=== PATIENT | male | born 1970 | race Caucasian/White ===

== ENCOUNTER 2017-02-03 01:23 | Inpatient (IN) ==
[2017-02-03 01:53] LABS: Bilirubin,Urine Negative (Negative); Blood,Urine Negative (Negative); Clarity,Urine Cloudy (Clear); Color,Urine Yellow (Yellow); Glucose,Urine (UA) Normal (Normal); Ketones,Urine Negative (Negative); Leukocyte Esterase,Urine Small (Negative); Nitrite,Urine Negative (Negative); PH,Urine 5.5 pH Units (5.0-8.0); Protein,Urine Negative (Neg-Trace); Specific Gravity,Urine 1.022 (1.010-1.025); Urobilinogen,Urine Normal (Normal)
[2017-02-03 01:54] LABS: Bacteria,Urine Few per hpf (None-Few); Hyaline Casts,Urine Few per lpf (None-Few); RBC,Urine 0-3 per hpf (0-3); Squamous Epithelial Cell,Urine Many per lpf (None-Few); WBC,Urine 15-30 per hpf (0-3)
[2017-02-03 02:00] LABS: Amphetamine Screen,Urine Negative ng/mL (Cutoff=1000); Barbiturate Screen,Urine Negative ng/mL (Cutoff=200); Benzodiazepines Screen,Urine Positive ng/mL (Cutoff=200); Cannabinoid Screen,Urine Positive ng/mL (Cutoff = 50); Cocaine Screen,Urine Positive ng/mL (Cutoff= 300); Opiate Screen,Urine Positive ng/mL (Cutoff=300); Phencyclidine Screen,Urine Negative ng/mL (Cutoff=25)
[2017-02-03 02:00] LABS: Basophils % 0.4 %; Eosinophils # 0.5 K/mcL (0.0-0.6); Eosinophils % 5.1 %; Hemoglobin 13.2 g/dL (12.9-16.9); Immature Granulocytes % 0.2 % (0-4); Lymphocytes # 2.3 K/mcL (0.6-4.6); Lymphocytes % 25.2 %; Mean Corpuscular Hemoglobin 28.6 pg (28.0-33.3); Mean Corpuscular Volume 86.6 fL (83.0-100.0); Mean Platelet Volume 10.9 fL (9.4-12.4); Monocytes # 0.5 K/mcL (0.0-1.3); Monocytes % 5.7 %; Neutrophils # 5.7 K/mcL (1.6-8.9); Platelet Count 237 K/mcL (140-400); Red Blood Count 4.62 M/mcL (4.19-5.50); Segmented Neutrophils % 63.4 %
[2017-02-03 02:13] LABS: BUN/Creatinine Ratio 19 (6-26); Blood Urea Nitrogen 15 mg/dL (8-26); Calcium 9.1 mg/dL (8.6-10.8); Carbon Dioxide 25 mEq/L (19-29); Chloride 103 mEq/L (98-109); Glucose 116 mg/dL (70-99); Osmolality,Calculated 286 (280-300); Potassium 4.2 mEq/L (3.5-4.5); Sodium 137 mEq/L (136-145); eGFR For African Americans > 60 (> 60); eGFR For Non-African Americans > 60 (> 60)
[2017-02-03 02:14] LABS: Acetaminophen < 1.0 mcg/mL (10-30); Ethanol < 10 mg/dL (0-10); Salicylate < 5.0 mg/dL (15-30)
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
[2017-02-03] MEDS ORDERED: ALPRAZolam 0.5 MG TABLET PO ONE (05:17)
[2017-02-03] MEDS ORDERED: traZODone 50 MG TABLET PO PRN (05:21)
[2017-02-03] MEDS ORDERED: *HR* LORazepam 1 MG TABLET PO PRN (05:21)
[2017-02-03] MEDS ORDERED: Haloperidol Lactate 5 MG/ML VIAL IM PRN (05:21)
[2017-02-03] MEDS ORDERED: Ibuprofen 400 MG TABLET PO PRN (05:21)
[2017-02-03] MEDS ORDERED: MOM Conc 10 ML UD.LIQ PO PRN (05:21)
[2017-02-03] MEDS ORDERED: Mag Hydrox/Al Hydrox/Simeth 30 ML UDC PO PRN (05:21)
[2017-02-03] MEDS ORDERED: *HR* LORazepam 2 MG/ML VIAL IM PRN (05:21)
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
[2017-02-03] MEDS: Gabapentin 400 MG CAPSULE PO SCH ×3 (12:30→21:21)
[2017-02-03] MEDS ORDERED: Gabapentin 400 MG CAPSULE PO SCH (13:00)
[2017-02-03] MEDS: hydrOXYzine pamoate 25 MG CAPSULE PO PRN (15:06)
[2017-02-03] MEDS: clonazePAM 1 MG TABLET PO SCH (21:21)
[2017-02-04] MEDS: Gabapentin 400 MG CAPSULE PO SCH ×4 (09:45→20:49)
[2017-02-04] MEDS: clonazePAM 1 MG TABLET PO SCH ×2 (09:45→20:49)
--- NOTE | 2017-02-04 09:51 | Psychiatry Progress Note ---
Date of Encounter: 02/04/17 Time of Encounter: 09:44 Subjective Interval history: States he is feeling much better. Smiling and joking today. Telling staff how much he loves them. Saw a peer act up in order to leave the hospital yesterday and he started to do the same but was easily redirected. Now he is using flattery with everyone. [place]hler II more apparent but clearly has multiple stressors as well. Client seems to like medications. Feels they are helping him and plans to stay on them. Staff were able to verify that he is prescribed high dose Xanax and Neurontin at home. Neurontin restarted but Klonopin used in place of Xanax. Client reports he slept much better on the Klonopin. Discussed how Klonopin has a much longer half life and is less potent and the risk for tolerance/withdrawal is less. Recommended he stick with the Klonopin after discharge and not return to the Xanax. Also started on Lexapro which he seems to like. Spoke with his kids yesterday and they helped put things in perspective for him. No longer feeling suicidal and claims he wouldn't hurt himself "in a million years." Plans to speak with Kelsey in the morning. Can likely be discharged tomorrow if she is able to get him follow up appointments and family feel comfortable having him home. Review of Systems Constitutional: Denies: fever, chills, weakness, weight change Eyes: Denies: eye pain, vision change Ears, Nose, Throat: Denies: ear pain, throat pain, dental pain, hearing loss, congestion Cardiovascular: Denies: chest pain, palpitations, dyspnea on exertion Respiratory: Denies: cough, dyspnea, wheezes Gastrointestinal: Denies: abdominal pain, nausea, vomiting, diarrhea, constipation Musculoskeletal: Reports: joint pain, myalgia Neurological: Denies: headache, weakness, numbness, memory loss Objective: Exam Patient orientation: Yes Person, Yes Time, Yes Place Level of alertness: Alert Patient appearance: Unkempt Behavior: calm, cooperative Psychomotor activity: Normal Eye contact: Maintains Eye Contact Mood description: Euthymic/stable Affect description: congruent with mood Speech pattern: Normal rate, Normal rhythm, Normal tone Speech volume: Normal Thought process: Linear, Goal Oriented Thought content: No Suicidal ideation, No Homicidal ideation, No Overt delusions Perceptual disturbances: No Auditory hallucinations, No Visual hallucinations Judgment: Limited Insight: Partial Results - Vital Signs Vital Signs: Temp Pulse Resp BP Pulse Ox 97.4 F L 79 16 168/110 97 02/03/17 20:26 02/03/17 20:26 02/03/17 20:26 02/03/17 20:26 02/03/17 01:24 Assessment and Plan (1) Major depressive disorder Current visit: Yes Status: Acute Plan: Continue hospitalization, Close observation, Suicide Precautions per unit protocol, Encourage participation in unit milieu, Group Therapy, Monitor sleep, Monitor appetite Risks, benefits, side effects, alternatives discussed w/pt: Yes Patient agreeable to treatment: Yes Qualifiers: Major depression recurrence: recurrent Active/Remission status: currently active Major depression episode severity: severe Psychotic features: without psychotic features Qualified Code(s): F33.2 - Major depressive disorder, recurrent severe without psychotic features Consult Discharge Plan - Plan Referrals: NONE,PCP [Primary Care Provider] -
[2017-02-04] MEDS: hydrOXYzine pamoate 25 MG CAPSULE PO PRN (20:50)
[2017-02-05] MEDS: Gabapentin 400 MG CAPSULE PO SCH ×2 (08:43→13:21)
[2017-02-05] MEDS: clonazePAM 1 MG TABLET PO SCH (08:44)
--- NOTE | 2017-02-05 10:38 | Discharge Summary ---
Date of Encounter: 02/05/17 Time of Encounter: 10:00 Diagnosis - Discharge Diagnosis (1) Major depressive disorder Status: Acute Qualifiers: Major depression recurrence: recurrent Active/Remission status: currently active Major depression episode severity: severe Psychotic features: without psychotic features Qualified Code(s): F33.2 - Major depressive disorder, recurrent severe without psychotic features Medications - Discharge Medications Prescriptions: Escitalopram [Lexapro] 10 mg PO DAILY #30 tablet hydrOXYzine pamoate [HydrOXYzine Pamoate] 25 mg PO TID PRN #90 capsule PRN Reason: Anxiety Alprazolam [Xanax] 2 mg PO 0900,2100 02/03/17 [History] Gabapentin [Neurontin] 800 mg PO QID 02/03/17 [History] Escitalopram [Lexapro] 10 mg PO DAILY #30 tablet 02/05/17 [Rx] hydrOXYzine pamoate [HydrOXYzine Pamoate] 25 mg PO TID PRN #90 capsule 02/05/17 [Rx] 3 Allergy/AdvReac Type Severity Reaction Status Date / Time No Known Allergies Allergy Verified 02/01/17 17:43 Provider Date of admission: 02/03/17 05:11 Primary care physician: PCP NONE Discharging clinician: Narcisa Metz Assessment and Plan - Patient/Caregiver Discharge Instructions Activity: resume usual activities as tolerated Diet: regular diet - Follow up Plan Follow up with: Gianni Leavitt MD [Non-Partnered Physician] - 02/27/17 10:00 am (The above appointment is with Dr. Leavitt for outpatient psychiatric assessment and medication management services.) Functional capacity at discharge: independent ambulation Overall status at discharge: Stable Disposition: Home, Self-Care Hospital Course Hospital course: Mr. Edwards is a 46 year old male with a history of depression and anxiety who presented to the hospital after being pulled over by the police. Patient works that drug paraphernalia was found in car. This led to increased stress and depressio reported suicidal ideations. He was admitted to for crisis stabilization. Patient was incorporated into the therapeutic milieu and offered group and individual as well as recreational therapy. Patient's UDS was positive for opiates and amphetamines and patient does admit to THC use. Patient felt like current medications were not working as well and he was transitioned to Lexapro for his depression and anxiety symptoms. Also offered hydroxyzine. Throughout the course of the hospital stay the patient's mood improved. He began to deny suicidal ideations reporting that "what I said was stupid." He further states that he loves his family and he would never want to hurt them that way. Patient does have an outpatient psychiatrist and is willing to continue meds as prescribed and follow-up with that doctor. At the time of discharge patient continued to deny suicidal ideations. He did participate in some group and unit activities and was cooperative with staff. He will be discharged in stable condition with outpatient follow-up in place. - Time Spent with Patient Total time spent providing and/or coordinating discharge services: Greater than 30 minutes Quality - Multiple Antipsychotics Patient discharged on 2 or more antipsychotic medications: No Procedures - Procedures Procedures: Medication Management, Crisis Stabilization, Supportive Therapy, Group Therapy, Psychoeducational Therapy Mental Status Exam - Mental Status Exam Patient orientation: Yes Person, Yes Time, Yes Place Level of alertness: Alert Patient appearance: Appropriate, Well Groomed Behavior: calm, cooperative Psychomotor activity: Normal Eye contact: Maintains Eye Contact Mood description: Euthymic/stable Affect description: congruent with mood, full range Speech pattern: Normal rate, Normal rhythm, Normal tone Speech Volume: Normal Thought process: Linear, Goal Oriented Thought Content: No Suicidal ideation, No Homicidal ideation, No Overt delusions Perceptual Disturbances: No Auditory hallucinations, No Visual hallucinations Judgment: Limited Insight: Partial
[2017-02-05 12:46] VITALS: BP 158/100
== END 2017-02-05 14:08 | disposition home or self-care (01) | DRG 885 ==
LOC: EMEROO 01:23 → 1ANU 05:11
PROVIDERS: ADMIT Psychiatry & Neurology Psychiatry; ATTEND Psychiatry & Neurology Psychiatry